=== PATIENT | female | born 1930 | race Caucasian/White ===

== ENCOUNTER → 2016-11-05 | Outpatient (CLI) | payer MEDICARE, BC ==
[~2016-11-05] MED LIST: BACTRIM DS1 TAB PO; CHLORASEPTIC SP1 BOT PO; COLACE100 MG PO; COREG 3.1253.125 MG PO; COREG6.25 MG PO; CYCLOBENZAPRINE5 MG PO; DULCOLAX10 MG R; ENEMA READY TO133 ML R; FEOSOL ELI220 MG/5 M PO; FLEET133 ML R; LANSOPRAZOLE PO; LIPITOR10 MG PO; LOVENOX40 MG/0.4 SUB-Q; LOW DOSE ASPIRI81 MG PO; MILK OF MA400 MG/5 M PO; MIRALAX17 GM PO; MYCOSTATIN(NYST15 GM TOP; NAPROSYN500 MG PO; NIFEREX-150) (150 MG PO; NORCO 5-325 MG1 TAB PO; PRILOSEC20 MG PO; PROLIA60 MG/ML SUB-Q; SENOKOT SYRUP240 ML PO; TYLENOL EXTRA500 MG PO; TYLENOL325 MG PO; VASOTEC2.5 MG PO; XARELTO10 MG PO; ZESTRIL2.5 MG PO
== END | disposition disaster alternative care site (69) ==
LOC: GRAD 13:00
DX: S72.001D Fracture of unspecified part of neck of right femur, subsequent encounter for closed fracture with routine healing (principal); Z96.641 Presence of right artificial hip joint; Z98.890 Other specified postprocedural states